=== PATIENT | male | born 1995 | race Caucasian/White ===

== ENCOUNTER → 2022-04-22 12:42 | Outpatient (BNVA) | payer OTHER, SELFPAY | PROVIDERS: Visit Provider Psychiatry & Neurology Psychiatry | DX: Z79.899 Other long term (current) drug therapy (principal); F90.9 Attention-deficit hyperactivity disorder, unspecified type; F43.23 Adjustment disorder with mixed anxiety and depressed mood | CPT/HCPCS: 80053; 80061; 83036; 84443; 85025 ==